=== PATIENT | female | born 1990 | race African-American/Black ===

== ENCOUNTER 2021-12-19 17:46 | Emergency (ER) | payer MEDICAID ==
[~2021-12-19] VITALS: Ht 170.2 cm; Wt 99.6 kg
[2021-12-19 18:04] VITALS: BP 126/76
== END 2021-12-19 21:18 | disposition home or self-care (01) ==
LOC: ER 17:46
DX: J06.9 Acute upper respiratory infection, unspecified (principal); B97.89 Other viral agents as the cause of diseases classified elsewhere; Z20.822 Contact with and (suspected) exposure to COVID-19
CPT/HCPCS: 36415